=== PATIENT | male | born 1945 | race Caucasian/White ===

== ENCOUNTER 2018-12-08 12:13 | Emergency (ER) | payer OTHER ==
[~2018-12-08] VITALS: Ht 172.7 cm; Wt 92.5 kg
--- NOTE | 2018-12-08 13:10 | EKG ---
[place] [address] [place] [facility] [employer] [place] [address] ELECTROCARDIOGRAM REPORT Name: ADELINA HAMMOND Room #: REG TRINY Ríos#: [id number] ������������������ Admission: 12/08/18 ������������������ Attend Phys: Discharge: ������������������ Date of : 47 Report #: [id number] ����������������������������������������������������������������� [id number] THIS REPORT FOR: //name// [facility] ED Test Date: 2018-12-08 Test Time: 12:37:56 Pat Name: ADELINA HAMMOND Department: Room: Gender: Progressive Care Manager: JAGUARNu : 1945 Requested By: Isabelle Mullen Order Number: [id number] MD: Jack Tucker Measurements Intervals [place] Rate: 63 P: 29 VT: 217 QRS: -49 QRSD: 118 T: -27 QT: 415 QTc: 425 Interpretive Statements Sinus rhythm Borderline prolonged VT interval Left axis deviation Left anterior fascicular block Nonspecific ST-T wave abnormalities No previous ECG available for comparison Electronically Signed On 12-08-2018 13:10:21 [employer] by Jack Tucker [email or web address] ��������������������������������������������� <ELECTRONICALLY SIGNED> ���������������������������������������� By: Jack Tucker MD ��������������������������������������������� 12/08/18 1310 1237 Replaced by [facility] Jack Tucker MD /[email or web address]
[2018-12-08] MEDS ORDERED: ASPIR 8181 MG PO (13:15)
[2018-12-08] MEDS ORDERED: HUMALOG KW100 UNIT/1 SUBQ ×2 (13:16→15:26)
[2018-12-08] MEDS ORDERED: LOPRESSOR25 PO (13:16)
[2018-12-08] MEDS ORDERED: ATORVASTATIN CA40 MG PO (13:17)
[2018-12-08] MEDS ORDERED: LAMICTAL XR25 MG PO (13:17)
[2018-12-08] MEDS ORDERED: LANTUS SUBQ ×2 (13:18→15:26)
[2018-12-08] MEDS ORDERED: VITAMIN D3400 UNIT PO (13:19)
[2018-12-08] MEDS ORDERED: VITAMIN B-12500 MCG PO (13:19)
[2018-12-08] MEDS ORDERED: VITAMINC500 PO (13:19)
[2018-12-08] MEDS ORDERED: COLACE100 MG PO (13:20)
[2018-12-08] MEDS ORDERED: SENNA8.6 MG PO (13:20)
[2018-12-08] MEDS ORDERED: MAGOX 400400 MG PO (13:20)
[2018-12-08 13:23] LABS: HEMATOCRIT 38.4 % (42.0-52.0); HEMOGLOBIN 13.3 gm/dL (14.0-18.0); MCHC 34.7 g/dL (28.0-37.0); MCV 83.7 fL (80.0-100.0); RBC 4.59 mil/uL (4.50-6.00); RDW 14.4 % (10.5-14.5); WBC 7.9 thou/uL (4.0-11.0)
[2018-12-08 13:34] LABS: ANION GAP 7 mmol/L (7-16); BUN 16 mg/dL (7-18); CHLORIDE 101 mmol/L (98-107); CO2 28 mmol/L (21-32); CREATININE 0.8 mg/dL (0.7-1.3); GLUCOSE 331 mg/dL (74-106); POTASSIUM 3.9 mmol/L (3.5-5.1); SODIUM 136 mmol/L (136-145)
[2018-12-08 13:43] LABS: ALBUMIN 3.6 g/dL (3.4-5.0); SGOT 16 U/L (15-37); SGPT 20 U/L (30-65); TOTAL BILIRUBIN 0.8 mg/dL (<0.1-1.0); TOTAL PROTEIN 6.8 g/dL (6.4-8.2); TROPONIN-I <0.06 ng/mL (<0.06)
[2018-12-08 14:01] LABS: URINE BILIRUBIN NEGATIVE (Negative); URINE BLOOD NEGATIVE (Negative); URINE CLARITY CLEAR; URINE COLOR YELLOW; URINE GLUCOSE-RANDOM* 3+ (Negative); URINE KETONES NEGATIVE (Negative); URINE LEUKOCYTES-REFLEX NEGATIVE (Negative); URINE NITRITE-REFLEX NEGATIVE (Negative); URINE PROTEIN (DIPSTICK) NEGATIVE (Negative); URINE SPECIFIC GRAVITY 1.015 (1.005-1.035); URINE UROBILINOGEN 0.2 E.U./dl (0.2-1.0)
[2018-12-08 15:14] LABS: BE(vivo) 0.3 mmol/L (-2 to +3); HCO3 25.3 mmol/L (22.0-26.0); PCO2 VENOUS 42.1 mmHg (41.0-51.0); PO2 VENOUS 62.2 mmHg (35.0-45.0)
[2018-12-08] MEDS ORDERED: ACCU-CHEK1 EAC3 TRANSDERM (15:26)
[2018-12-08 15:39] VITALS: BP 133/74
== END 2018-12-08 15:45 | disposition home or self-care (01) ==
LOC: ER 12:13
PROVIDERS: Student in an Organized Health Care Education/Training Program
DX: E11.65 Type 2 diabetes mellitus with hyperglycemia (principal); G30.9 Alzheimer's disease, unspecified; F02.80 Dementia in other diseases classified elsewhere, unspecified severity, without behavioral disturbance, psychotic disturbance, mood disturbance, and anxiety; M19.90 Unspecified osteoarthritis, unspecified site; Z79.4 Long term (current) use of insulin